=== PATIENT | female | born 1960 | race African-American/Black ===

== ENCOUNTER 2017-07-14 12:26 | Outpatient (CLI) | payer OTHER ==
--- NOTE | 2017-07-14 15:26 | RAD ---
TWO VIEW CHEST: INDICATION: Bronchitis. FINDINGS: There are prominent overlying soft tissues which partially obscure the mid to lower lung zones bilate rally. Cardiac silhouette is at upper limits of normal in size. No significant vascular congestion. No obvious pneumothorax. IMPRESSION: 1. No lobar consolidation identified. 2. Prominent overlying body wall soft tissues which partially obscure the mid to lower lung zones bi laterally. POS: [facility]
== END 2017-07-14 12:27 | disposition home or self-care (01) ==
LOC: MADRAD 12:26
PROVIDERS: ATTEND Physician Assistant
DX: J40 Bronchitis, not specified as acute or chronic (principal)
CPT/HCPCS: 71046

== ENCOUNTER 2017-12-27 15:52 | Emergency (ER) | payer OTHER, SELFPAY ==
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
== END 2017-12-27 17:26 | disposition home or self-care (01) ==
LOC: MADERS 15:52
DX: R51 Headache (principal); M19.011 Primary osteoarthritis, right shoulder; I10 Essential (primary) hypertension; E11.9 Type 2 diabetes mellitus without complications; V43.62XA Car passenger injured in collision with other type car in traffic accident, initial encounter
CPT/HCPCS: 70450